=== PATIENT | female | born 1940 | race Hispanic/Latino ===

== ENCOUNTER 2023-08-01 11:45 | Emergency (ER) | payer OTHER, MEDICARE ==
[~2023-08-01] VITALS: Ht 154.9 cm; Wt 74.4 kg
[2023-08-01] MEDS ORDERED: ACET-66 PO (13:45)
[2023-08-01 13:58] VITALS: BP 129/63; PULSE 70; RESP 18; O2SAT 97
== END 2023-08-01 14:21 | disposition home or self-care (01) ==
LOC: EDH 11:45
DX: S82.832A Other fracture of upper and lower end of left fibula, initial encounter for closed fracture (principal); M79.89 Other specified soft tissue disorders; E11.9 Type 2 diabetes mellitus without complications; E78.00 Pure hypercholesterolemia, unspecified; I10 Essential (primary) hypertension; Z95.1 Presence of aortocoronary bypass graft; X50.1XXA Overexertion from prolonged static or awkward postures, initial encounter; Y93.01 Activity, walking, marching and hiking; Y92.89 Other specified places as the place of occurrence of the external cause; Y99.8 Other external cause status
CPT/HCPCS: 29515; 73590; 73610; 73630